=== PATIENT | male | born 1945 | race Caucasian/White ===

== ENCOUNTER → 2018-05-17 10:04 | Outpatient (CLI) | payer MEDICARE, OTHER, SELFPAY ==
--- NOTE | 2018-05-17 10:13 | XR_ITS ---
XR hip RT 2-3V w/pelvis HISTORY: ITS.REASON: RT HIP PAIN ORDERING PHYSICIAN: Omar Moreno MD PATIENT AGE: 72 years COMPARISON: None FINDINGS: There are mild osteoarthritic changes of the hips slightly greater on the right. No fracture or dislocation. No lytic or blastic change. Facet arthritic changes are present at L5-S1. IMPRESSION: Mild osteoarthritis of both hips right greater than left
[2018-05-17 11:55] LABS: Alanine Aminotransferase 30 U/L (12-78); Albumin Level 4.1 gm/dL (3.4-5.0); Albumin/Globulin Ratio 1.5 (1.1-1.8); Alkaline Phosphatase 88 U/L (46-116); Anion Gap 11.1 mEq/L (5-15); Aspartate Amino Transferase 19 U/L (15-37); Bilirubin,Total 0.6 mg/dL (0.2-1.0); Blood Urea Nitrogen 20 mg/dL (7-18); Calcium 9.1 mg/dL (8.5-10.1); Carbon Dioxide 30 mmol/L (21.0-32.0); Chloride 108 mmol/L (98-107); Chol/HDL Ratio 3.8 (1-3.5); Cholesterol 129 mg/dL (140-200); Creatinine,Serum 0.85 mg/dL (0.70-1.30); Estimated Glomerular Filt Rate 89 ml/min (>60); GFR (African American) 108 ML/MIN (>60); Globulin 2.8 gm/dl (1.3-3.2); Glucose 110 mg/dL (74-106); HDL Cholesterol 34 mg/dL (27-67); LDL Cholesterol 73 mg/dL (0-130); Potassium 4.1 mmoL/L (3.5-5.1); Prostate Specific Ag Screen 4.7 ng/mL (0.0-4.0); Sodium 145 mmol/L (136-145); Total Protein,Serum 6.9 gm/dL (6.4-8.2); Triglycerides 108 mg/dL (30-200); VLDL Cholesterol 22 mg/dL (0-40)
== END ==
PROVIDERS: PCP Family Medicine; Visit Provider Family Medicine
DX: Z12.5 Encounter for screening for malignant neoplasm of prostate (principal); N52.9 Male erectile dysfunction, unspecified; I10 Essential (primary) hypertension; E78.2 Mixed hyperlipidemia
CPT/HCPCS: 36415; 73502; 80053; 80061; G0103

== ENCOUNTER → 2018-07-14 09:44 | Outpatient (CLI) | payer MEDICARE, OTHER, SELFPAY ==
--- NOTE | 2018-07-14 09:48 | XR_ITS ---
XR ankle wt bearing LT min 3V HISTORY: ITS.REASON: pain ORDERING PHYSICIAN: Maryse Dockery DPM PATIENT AGE: 72 years Comparison: 07/30/2016 FINDINGS: No fracture or dislocation. No lytic or blastic change. There is normal mineralization.. The joint spaces are well-preserved. No significant degenerative/arthritic changes. No erosive changes evident. Minimal hypertrophic changes are present at the base of the medial malleolus region with minimal spurring along the injured distal tibia. IMPRESSION: Minimal degenerative change, no acute finding
--- NOTE | 2018-07-14 09:48 | XR_ITS ---
XR foot wt bearing LT 3V HISTORY: ITS.REASON: pain ORDERING PHYSICIAN: Maryse Dockery DPM PATIENT AGE: 72 years COMPARISON: None FINDINGS: Normal alignment. No fracture or dislocation. Minimal osteoarthritic changes are present at the first metatarsophalangeal joint with minimal hypertrophic changes of the distal aspect of the first metatarsal. There are hypertrophic changes are also present between the base of the first and second metatarsals. Bony hypertrophy also noted at the proximal aspect and lateral aspect of the third metatarsal with some reactive spurring along the medial aspect of the fourth metatarsal at this region. There is a small calcaneal spur. IMPRESSION: Mild osteoarthritic change with bony spurring as described above
--- NOTE | 2018-07-14 09:48 | XR_ITS ---
XR ankle wt bearing RT min 3V HISTORY: ITS.REASON: pain ORDERING PHYSICIAN: Maryse Dockery DPM PATIENT AGE: 72 years Comparison: None FINDINGS: No fracture or dislocation. No lytic or blastic change. There is normal mineralization.. The joint spaces are well-preserved. No significant degenerative/arthritic changes. No erosive changes evident. Minimal spurring of the anterior distal tibia. Minimal calcification of the tibiofibular syndesmosis IMPRESSION: Negative ankle, no acute finding
--- NOTE | 2018-07-14 09:48 | XR_ITS ---
XR foot wt bearing RT 3V HISTORY: ITS.REASON: pain ORDERING PHYSICIAN: Maryse Dockery DPM PATIENT AGE: 72 years COMPARISON: None FINDINGS: There are mild osteoarthritic changes of the metatarsophalangeal junction as well as mild bony hypertrophic change at the base of the first metatarsal and at the distal aspect of the third metatarsal. There is a small calcaneal spur. There is normal alignment. IMPRESSION: Mild degenerative changes as described above
== END ==
PROVIDERS: PCP Family Medicine; Visit Provider Podiatrist
DX: M25.579 Pain in unspecified ankle and joints of unspecified foot (principal)
CPT/HCPCS: 73610; 73630

== ENCOUNTER → 2019-03-08 07:04 | Outpatient (CLI) | payer MEDICARE, OTHER, SELFPAY ==
--- NOTE | 2019-03-08 07:12 | CT_ITS ---
CT abdomen pelvis wo con CLINICAL INDICATION: Right flank pain ITS.REASON: FLANK PAIN, HEMATURIA ORDERING PHYSICIAN: Omar Moreno MD PATIENT AGE: 73 years COMPARISON: None TECHNIQUE: Axial images obtained with sagittal and coronal reformats. All CT scans at the facility use one or more dose reduction, viz: automated exposure control, ma/kV adjustment per patient size (including targeted exams where dose is matched to indication, i.e. head), or iterative reconstruction technique. PROCEDURE: Oral Contrast: None IV Contrast: None . FINDINGS: The lung bases are clear. The liver, gallbladder, spleen, and adrenal glands have an unremarkable unenhanced appearance. There is mild diffuse fatty infiltration of the pancreas. There are bilateral renal cysts. There is mild right hydronephrosis and hydroureter. A 4 mm stone is present in the proximal right ureter at the L4 level. There is a 5 mm stone in the lower pole the left kidney. A 3 mm stone is present in the mid polar region of the right kidney right parapelvic renal cyst is present at 3 cm. No intestinal obstruction or free air. Extensive diverticulosis involves the sigmoid colon and descending colon. No evidence of diverticulitis. Unremarkable appendix. The prostate is enlarged at 6 x 4.7 cm. Coarse calcification is present centrally and inferiorly. There are degenerative changes of lumbar spine. There is fusion of the SI joints on both sides. IMPRESSION: 1. 4 mm proximal right ureteral stone with mild right-sided obstructive uropathy. 2. Bilateral renal cysts with bilateral nephrolithiasis. 3. Enlarged prostate. 4. Sigmoid diverticulosis. No evidence of diverticulitis
== END ==
PROVIDERS: PCP Family Medicine; Visit Provider Family Medicine
DX: R10.9 Unspecified abdominal pain (principal); R31.29 Other microscopic hematuria
CPT/HCPCS: 74176

== ENCOUNTER → 2020-06-14 09:45 | Outpatient (CLI) | payer MEDICARE, OTHER, SELFPAY ==
[2020-06-14 10:59] LABS: Coronavirus 19 IgG Antibody Negative (Negative); Coronavirus 19 IgM Antibody Negative (Negative)
== END ==
PROVIDERS: Visit Provider Internal Medicine Gastroenterology
DX: Z01.818 Encounter for other preprocedural examination (principal); Z12.11 Encounter for screening for malignant neoplasm of colon; Z86.010 Personal history of colon polyps
CPT/HCPCS: 36415; 86328

== ENCOUNTER 2020-06-17 10:53 | Day surgery (SDC) | payer MEDICARE, OTHER, SELFPAY ==
[2020-06-13 12:51] VITALS: BMI 22.9
[2020-06-17] VITALS (7 sets, daily range): BP systolic 115–151; BP diastolic 75–87; PULSE 81–102; RESP 16–18; TEMP 36.3–36.7; O2SAT 97–99
--- NOTE | 2020-06-17 12:22 | P.PN_ITS ---
[facility] Anesthesia Checklist - Patient Identification Patient Identification: Arm Band - Structural Data Admitted From: Home Planned Operative Procedure/s: colonoscopy Consent for Planned Operative Procedure(s) Verified: Yes Verified Documents: Surgical Consent, History and Physical - NPO Status Verified Time NPO: 00:00 - Additional verifications Anesthesia Reactions: No - Airway Assessment C-Spine Mobility Assessed: Yes (mp2) TMJ Mobility Assessed: Yes Dentition: Edentulous - Neurological Assessment Level of Consciousness: Awake, Alert - Anesthesia Plan Anesthesia Risk discussed: Yes Anesthesia Plan: Verified ASA Class: II Anesthesia Type: MAC [facility] History I have reviewed the patient's past medical history: Yes Medical History: Reports:: Gastroesophageal Reflux Disease(GERD), Hyperlipidemia, Hypertension Denies:: Cancer, Diabetes Mellitus Type 1, Diabetes Mellitus Type 2, Internal Pacemaker, MRSA, Seizures *Have you ever received a pneumonia vaccine?: Yes *Have you received a flu vaccine this season?: Yes Anesthesia experience/problems:: nac Laterality Cases: Bilateral: Arthroscopy Shoulder, Tonsillectomy Other Surgeries: Yes: Colonoscopy. No: Pacemaker Amputation: No - *Social History Last grade of school completed: High school graduate Smoking Status: Former smoker Alcohol Intake: never Alcohol Intake Frequency:: other Substance Use Type: denies use *Occupational Status:: retired Housing: house Household Members: spouse *Travel in the last 8 weeks: None Family Hx:: Cancer, Diabetes
--- NOTE | 2020-06-17 12:47 | P.PCN_ITS ---
[facility] Procedure Note Procedure Note:: Colonoscopy Procedure Report: Colonoscopy with cold snare polypectomy Endoscopist: Hemal Herrmann II, MD Referring physician: Yehuda Moreno MD Date of Procedure: June 17, 2020 Equipment: Olympus 180 variable stiffness pediatric colonoscope Sedation: MAC sedation Indication: Mr. Alba is a 74-year-old gentleman who is here for follow-up screening/surveillance colonoscopy secondary to a personal history of colon polyps. The patient did have a colonoscopy 13 years ago that was normal. His last colonoscopy in May 2017 revealed 9 colon polyps (tubular adenomas x8/mucosal prolapse polyp x1) which were removed. The patient reports no abdominal pain, weight loss, change in his bowel habits or rectal bleeding. He reports no family history of colon cancer. Procedure: Prior to the procedure, a history and physical exam was performed, and patient's medications and allergies were reviewed. The risks, benefits and alternatives of the sedation and procedure were discussed with the patient. All questions were answered and informed consent was obtained. The patient was brought to the procedure room. Patient identification and proposed procedure were verified by the physician and the nurse. The patient was placed in a left lateral decubitus position and the scope was passed under direct vision. Throughout the procedure, the patient's blood pressure, pulse, and oxygen saturations were monitored continuously. The colonoscopy was accomplished without difficulty. The patient tolerated the procedure well. Findings: On digital rectal examination there was normal rectal tone. There were no external hemorrhoids. The prostate was 2+, moderately firm and mildly asymmetric without nodules. The colonoscope was introduced through the anal canal to the rectum and advanced to the cecum. The ileocecal valve and appendiceal orifice were identified. The scope was advanced a short distance into the ileum which appeared grossly normal. The scope was then withdrawn into the colon. There were 6 colon polyps (cecum x1 (3 mm), ascending x1 (4 mm), transverse x3 (3, 3 and 5 mm) and rectum x1 (4 mm)) which were all removed via cold snare polypectomy. There were scattered diverticuli throughout the descending and sigmoid colon (LEFT colon). The rectum itself was normal. Upon retroflexion within the rectum there were grade 2 internal hemorrhoids. The preparation was excellent throughout with [place] Preparation Score of 9. The cecal time was 12 minutes. Impression: 1. Diminutive colonic polyps x6 2. Left-sided diverticulosis 3. Grade 2 internal hemorrhoids Plan: I will follow up the polyp pathology and recommend repeat colonoscopy again in 3-5 years based upon the polyp histology. I would encourage bulk fiber supplementation on a long-term daily maintenance basis.
== END 2020-06-17 13:35 | disposition home or self-care (01) ==
LOC: OUTP 10:56
PROVIDERS: PCP Family Medicine; Visit Provider Internal Medicine Gastroenterology
PROC: 0DJD8ZZ Inspection of Lower Intestinal Tract, Via Natural or Artificial Opening Endoscopic (ICD-10-PCS; CPT 45378; principal; 2020-06-17 13:00)
DX: Z12.11 Encounter for screening for malignant neoplasm of colon (principal); Z86.010 Personal history of colon polyps; K63.5 Polyp of colon; K57.30 Diverticulosis of large intestine without perforation or abscess without bleeding; K64.1 Second degree hemorrhoids; K21.9 Gastro-esophageal reflux disease without esophagitis; I10 Essential (primary) hypertension; E78.5 Hyperlipidemia, unspecified; Z87.39 Personal history of other diseases of the musculoskeletal system and connective tissue; Z90.49 Acquired absence of other specified parts of digestive tract; Z87.891 Personal history of nicotine dependence; Z79.899 Other long term (current) drug therapy
CPT/HCPCS: 45385; 88305

== ENCOUNTER → 2020-10-28 10:45 | Outpatient (CLI) | payer MEDICARE, OTHER, SELFPAY ==
[2020-10-29 12:40] LABS: Covid-19 Nasal PCR Sendout P&C NEGATIVE
== END ==
PROVIDERS: PCP Family Medicine; Visit Provider Family Medicine
DX: Z03.818 Encounter for observation for suspected exposure to other biological agents ruled out (principal)
CPT/HCPCS: U0004

== ENCOUNTER → 2021-05-16 09:22 | Outpatient (CLI) | payer MEDICARE, SELFPAY ==
--- NOTE | 2021-05-16 09:47 | CT_ITS ---
PROCEDURE: CT ANGIO CHEST PE PROTOCOL CLINCIAL INDICATION: SOB History of Covid19 with continued shortness of breath and cough COMPARISON: No exams were available for comparison TECHNIQUE: IV Contrast: 70ML Isovue 370 Axial images obtained with sagittal and coronal reformats. All CT scans at the facility use one or more dose reduction, viz: automated exposure control, ma/kV adjustment per patient size (including targeted exams where dose is matched to indication, i.e. head), or iterative reconstruction technique. FINDINGS: HEART AND MEDIASTINAL STRUCTURES: No evidence of pulmonary embolus. No mediastinal or hilar mass or adenopathy. Coronary artery calcifications are present. There is very minimal dilatation of the proximal descending thoracic aorta at 3.1 cm. LUNGS AND PLEURAL SPACES: Minimal scarring in the lung apices. There are some paraseptal emphysematous changes noted. No suspicious pulmonary nodules. Calcified granuloma is present in the left lower lobe. There is minimal wispy area of slight increased density in the right upper lobe laterally which is nonspecific. No effusions or lobar consolidation. BONY STRUCTURES: Degenerative changes thoracic spine UPPER ABDOMEN: . Bilateral renal cysts ADDITIONAL FINDINGS: No other significant abnormalities. IMPRESSION: 1. No evidence of pulmonary embolus. 2. Minimal dilatation proximal descending thoracic aorta at 3 cm. 3. Minimal wispy increased density right upper lobe which could represent an area of residual infiltrate or fibrotic change. No suspicious nodules or other significant anomalies. Dictated by: Fan Chowdhury MD 05/16/2021 12:06 Fan Chowdhury MD in [place] 05/16/2021 12:06
[2021-05-16 09:51] LABS: Basophils % 0.5 % (0.1-2.0); Eosinophils # 0.1 K/mm3 (0.0-0.4); Eosinophils % 1.7 % (0.1-12.0); Hematocrit 44.8 % (42.0-52.0); Hemoglobin 15.4 g/dL (14.1-18.0); Lymphocytes # 2.4 K/mm3 (0.7-4.5); Lymphocytes % 29.2 % (10-50); Mean Corpuscular HGB Conc 34.3 g/dL (31.8-35.4); Mean Corpuscular Hemoglobin 28.9 pg (27.0-31.2); Mean Corpuscular Volume 84.4 fl (80-94); Mean Platelet Volume 7.8 fl (7.4-10.4); Monocytes # 0.5 K/mm3 (0.1-1.0); Monocytes % 6.2 % (1.7-9.3); Neutrophils # 5.1 K/mm3 (1.8-7.8); Neutrophils % 62.4 % (37.0-80.0); Platelet Count 252 K/mm3 (142-424); Red Blood Count 5.31 M/mm3 (4.60-6.20); Red Cell Distribution Width 13.5 % (11.5-17.5); White Blood Count 8.2 K/mm3 (4.8-10.8)
[2021-05-16 10:01] LABS: Blood Urea Nitrogen 21 mg/dl (9-20); Estimated Glomerular Filt Rate 110 ml/min (>60); GFR (African American) 133 ML/MIN (>60)
== END ==
PROVIDERS: PCP Family Medicine; Visit Provider Internal Medicine Pulmonary Disease
DX: R06.02 Shortness of breath (principal)
CPT/HCPCS: 36415; 71275; 82565; 84520; 85025; 93306; Q9967

== ENCOUNTER → 2021-05-27 15:09 | Outpatient (POV) | payer MEDICARE, SELFPAY | PROVIDERS: Visit Provider Dermatology | DX: Z00.00 Encounter for general adult medical examination without abnormal findings (principal) ==

== ENCOUNTER 2022-07-13 08:26 | Emergency (ER) | payer MEDICARE, SELFPAY ==
[2022-07-13 09:00] VITALS: BP 125/70; PULSE 87; RESP 16; TEMP 36.7; O2SAT 96; BMI 23.6
--- NOTE | 2022-07-13 09:08 | EXP.UTC ---
Discharge Plan Disposition Patient Disposition: Home, Self-Care Condition: Good Prescriptions Prescriptions: New azithromycin [Zithromax] 250 mg tablet 250 mg PO UD DOSE PK Qty: 6 0RF Rx Instructions: Take two (2) tablets today, then one (1) tablet days #2 thru #5 benzonatate [benzonatate] 100 mg capsule 100 mg PO TIDP PRN (Reason: Cough) Qty: 30 0RF methylprednisolone 4 mg Tablets,Dose Pack 4 mg PO DIRECTED Qty: 21 0RF No Action sildenafil 100 mg tablet 100 mg PO DAILY PRN (Reason: Edema) 10 Days Qty: 10 pantoprazole 40 mg tablet,delayed release (DR/EC) 40 mg PO DAILY 90 Days Qty: 90 atenolol 50 mg tablet 50 mg PO DAILY 90 Days Qty: 90 hydrochlorothiazide 12.5 mg capsule 12.5 mg PO DAILY 90 Days Qty: 90 amlodipine-atorvastatin 10-40 mg tablet 10 mg PO DAILY 90 Days Qty: 90 diclofenac sodium [Voltaren] 1 % gel 4 g Topical QID Qty: 30 2RF Rx Instructions: apply to single knee, ankle, foot; gently massage into area; for foot includes sole/toes/top of foot Referrals Follow up/Referrals: Riki Turner [Primary Care Provider] - See instructions Activity Restrictions/Add. Instructions Additional Instructions/Restrictions: Drink plenty of fluids. Take tylenol or ibuprofen for pain or fever. Take the medications as directed. Follow up with your regular doctor. GO TO THE ER FOR ANY WORSENING SYMPTOMS Don't start the oral steroids until tomorrow, since you had the shot here today. Clinical Impressions Clinical Impression: Sinusitis, Acute upper respiratory infection Instructions Patient Instructions: Sinusitis, DI for Sinusitis Discharge ED Provider: Alon Haro [facility] [place] HPI General Stated complaint: cough, congestion Mode of Arrival: Ambulatory Source of Information: Patient Limitations: No Limitations Time Seen by Provider: 07/13/22 09:08 Description of Symptoms (Recalled from Triage Doc. by RN): pt here for drainage and productive cough. symptoms began yesterday. pt states that his mucus is yellow tinged. HEENT Symptoms (Recalled from RN notes): Yes Resp Symptoms (Recalled from RN notes): Yes Skin Symptoms (Recalled from RN notes): No MS Symptoms (Recalled from RN notes): No Functional Status (Recalled from RN notes): n/a History of Present Illness Provider Complaint: He states that for the past 2 days he has had sinus congestion, sinus drainage and a sore throat. He has taken a home covid test that was negative. He denies significant cough and chest congestion. Related Data Home Medications Medication Instructions Recorded Confirmed amlodipine 10 mg-atorvastatin 40 10 mg PO DAILY blood pressure 07/21/18 06/17/20 mg tablet days #90 tabs atenolol 50 mg tablet 50 mg PO DAILY Heart disease 07/21/18 06/17/20 days #90 tabs hydrochlorothiazide 12.5 mg capsule 12.5 mg PO DAILY Fluid 90 days #07/21/18 06/17/20 caps pantoprazole 40 mg tablet,delayed 40 mg PO DAILY GERD 90 days #07/21/18 06/17/20 release tabs sildenafil 100 mg tablet 100 mg PO DAILY PRN Edema 10 days 07/21/18 06/17/20 #10 tabs Previous Rx's Medication Instructions Recorded diclofenac sodium 1 % topical gel 4 g Topical QID pain #30 grams 07/21/18 (Voltaren) azithromycin 250 mg tablet 250 mg PO UD DOSE PK #6 tabs 07/13/22 (Zithromax) benzonatate 100 mg capsule 100 mg PO TIDP PRN Cough #30 caps 07/13/22 methylprednisolone 4 mg tablets in 4 mg PO DIRECTED #21 tabs 07/13/22 a dose pack Allergies Allergy/AdvReac Type Severity Reaction Status Date / Time aspirin [ASPIRIN] Allergy Mild GI U[SET Verified 07/13/22 09:04 Worker's Comp Is this a Worker's Comp case?: No PFSH PFSH Social History Smoking Status: Former smoker alcohol intake: never substance use type: denies use current occupational status: retired Travel in the last 8 weeks: None household m
[2022-07-13 09:27] VITALS: BP 125/70; PULSE 87; RESP 16; TEMP 36.7
== END 2022-07-13 09:33 | disposition home or self-care (01) ==
PROVIDERS: Emergency Provider Nurse Practitioner Family; PCP Family Medicine
DX: J06.9 Acute upper respiratory infection, unspecified (principal); J32.9 Chronic sinusitis, unspecified
CPT/HCPCS: 96372; 99212; G0463; J0696

== ENCOUNTER → 2023-08-16 07:24 | Outpatient (CLI) | payer MEDICARE, SELFPAY ==
[2023-08-16 08:09] LABS: Blood Urea Nitrogen 13 mg/dl (9-20)
[2023-08-16 08:10] LABS: Estimated Glomerular Filt Rate 82 ml/min (>60); GFR (African American) 99 ML/MIN (>60)
--- NOTE | 2023-08-16 08:28 | CT_ITS ---
FINAL REPORT TECHNIQUE: Axial CT images of the abdomen were obtained with IV contrast only. Coronal and sagittal reformatted images were also obtained. This study was performed with techniques to keep radiation doses as low as reasonably achievable (ALARA). Individualized dose reduction techniques using automated exposure control or adjustment of mA and/or kV according to the patient's size were employed. CLINICAL HISTORY: luq pain and mass COMPARISON: None FINDINGS: Mild changes of emphysema are noted in the lung bases. The liver has an unremarkable appearance, without evidence of mass. The gallbladder appears normal without evidence of gallstones. There is no evidence of biliary ductal dilatation. The pancreas appears normal. The spleen is at the upper limits of normal measuring 13 cm in craniocaudal dimension. There are multiple low-attenuation foci noted in the spleen, that may represent granulomas or splenic cysts. Bilateral renal cysts are noted as well. There is no evidence of adenopathy. No abnormal fluid collection is seen. No localized inflammatory processes identified. Degenerative change involving the upper lumbar spine is present. IMPRESSION: Mild changes of emphysema noted in the lung bases. Spleen upper limits of normal in size with multiple low-attenuation foci, likely either granulomas or small splenic cysts. Bilateral renal cysts are present. Reviewed, Interpreted and Dictated by Dickson Contreras III, MD Transcribed by Yvonne Clark Authenticated and . [facility]
== END ==
PROVIDERS: PCP Family Medicine; Visit Provider Family Medicine
DX: R10.12 Left upper quadrant pain (principal); R19.02 Left upper quadrant abdominal swelling, mass and lump
CPT/HCPCS: 36415; 74160; 82565; 84520; Q9967